=== PATIENT | male | born 1980 | race Caucasian/White ===

== ENCOUNTER 2021-01-07 11:27 | Emergency (ER) | payer SELFPAY ==
[2021-01-07 11:42] VITALS: BP 163/113; PULSE 85; RESP 14; TEMP 36.6; O2SAT 98; BMI 28.7
--- NOTE | 2021-01-07 13:40 | ECG_ITS ---
[facility] Test Date: 2021-01-07 Pat Name: NANI MIRELES Department: Room: Gender: Male Hospital Manager: : 1980 Requested By: Fam Ugarte Order Number: [id number] Reading MD: MAGALI GIVENS Measurements Intervals [place] Rate: 69 P: 38 VT: 154 QRS: -1 QRSD: 110 T: 32 QT: 338 QTc: 362 Interpretive Statements SINUS RHYTHM INCOMPLETE RIGHT BUNDLE BRANCH BLOCK [90+ ms QRS DURATION, TERMINAL R IN V1/V2, 40+ ms S IN I/aVL/V4/V5/V6] No previous ECG available for comparison Electronically Signed On 01-07-2021 19:29:18 TRACK REPAIR WORKER by MAGALI GIVENS [id number]
--- NOTE | 2021-01-07 13:40 | XRR_ITS ---
PROCEDURE INFORMATION: Exam: XR Chest, 1 View Exam date and time: 01/07/2021 2:25 PM Age: 40 years old Clinical indication: Cough and dyspnea; Additional info: Dyspnea/cough TECHNIQUE: Imaging protocol: XR of the chest Views: Frontal portable upright view of the chest. COMPARISON: No relevant prior studies available. FINDINGS: Lungs: Left upper lobe calcified pulmonary parenchymal granuloma. The lungs are otherwise clear bilaterally. The pulmonary vasculature is normal. Pleural spaces: Unremarkable. No pleural effusion. No pneumothorax. Heart/Mediastinum: The heart is normal in size and contour. Bones/joints: No acute chest wall abnormality identified. XR/XR chest 1V portable [id number] IMPRESSION: No acute cardiopulmonary abnormality identified.
--- NOTE | 2021-01-07 13:43 | W.ED.GENADLT ---
HPI - General Adult General: Chief complaint: General Medical Stated complaint: HIGH BP (CONSISTENTLY) Time Seen by Provider: 01/07/21 12:57 History of Present Illness: HPI narrative: 40-year-old male presents emergency room with complaint of elevated blood pressure. He has a history of hypertension he quit taking his blood pressure medications about a year ago. He recently moved here and has not restarted them. He states he was taking clonidine as monotherapy in the past. He denies any visual difficulties difficulty speech swallowing no chest pain shortness of breath. He has not established with a primary care doctor in this region. Onset (ago): month(s) Severity: moderate Relieving factors: none Exacerbating factors: none Associated symptoms: Deny chest pain, confusion, cough, diaphoresis, decreased appetite, dyspnea, fevers/chills, headache(s), malaise, nausea, rash, palpitations, seizures, short of breath, syncope, vomiting or weakness Review of Systems Const: Denies: malaise or diaphoresis ENMT: Denies: throat pain, ear or mastoid pain, nasal discharge or nasal congestion Card: Denies: chest pain, palpitations or syncope Resp: Denies: dyspnea GI: Denies: nausea or vomiting : Denies: flank pain, dysuria, urinary frequency or urinary urgency Skin/Breast: Denies: rash Neuro: Denies: headache(s) or confusion Physical Exam Const: COMMON NORMALS: no acute distress GENERAL APPEARANCE: cooperative and comfortable ORIENTATION/CONSCIOUSNESS: Yes awake, Yes oriented to person, Yes oriented to place and Yes oriented to time HENMT: COMMON NORMALS: normocephalic, atraumatic and hearing grossly normal bilaterally HEAD & SCALP: normocephalic and atraumatic Neck/C-Spine: COMMON NORMALS: no JVD Resp: COMMON NORMALS: normal respiratory effort, No retractions, No use of accessory muscles and clear to auscultation bilaterally AUSCULTATION: clear to auscultation bilaterally Cardio: COMMON NORMALS: no JVD, regular rate, regular rhythm and No murmurs present (Cardio) RATE: regular rate RHYTHM: regular rhythm GI: COMMON NORMALS: Soft to palpation and No hepatosplenomegaly present AUSCULTATION: Yes normoactive bowel sounds PALPATION: Yes Soft to palpation, No Tenderness to palpation present (GI), No Guarding due to palpation present (GI) and Yes No hepatosplenomegaly present Extremity: COMMON NORMALS: normal to inspection, capillary refill normal, no clubbing, cyanosis or edema, no calf tenderness and no pedal edema Neuro: SENSORIUM/ORIENTATION: Yes oriented to person, Yes oriented to place and Yes oriented to time Skin: COMMON NORMALS: no rashes or lesions noted GENERAL SKIN EXAM: no rashes or lesions noted Course Vital Signs: Vital signs: Vital Signs Temperature 97.9 F 01/07/21 11:42 Pulse Rate 66 01/07/21 14:08 Respiratory Rate 19 H 01/07/21 14:08 Blood Pressure 130/92 01/07/21 14:08 Pulse Oximetry 98 01/07/21 14:08 MDM - General Adult MDM Narrative: Medical decision making narrative: Blood pressure much improved with treatment given in the ER. Will start mental amlodipine 5 mg daily and lisinopril 5 mg daily if have case management get him established with a primary care physician in [facility]. Return if has problems. Lab Data: Labs: Lab Results 01/07/21 01/07/21 Range/Units 14:06 14:06 WBC 8.1 (4.0-10.0) 10^3/ uL RBC 6.11 H (4.1-5.3) 10^6/u L Hgb 15.6 (11.7-16.6) g/dL Hct 50.7 (42.0-52.0) % MCV 83.0 (80-94) fL MCH 25.5 L (28.0-34.0) pg MCHC 30.8 (30.0-36.0) g/dL RDW 14.7 (12.1-15.1) % Plt Count 222 (130-400) 10^3/c mm MPV 12.1 H (7.4-10.4) fL Neut % (Auto) 51.8 % Lymph % (Auto) 34.3 % [place] % (Auto) 10.1 % Eos % (Auto) 2.6 % Baso % (Auto) 0.7 % Neut # (Auto) 4.20 (1.8-7.7) 10^3/u L Lymph # (Auto) 2.8 (0.8-4.8) 10^3/u L [place] # (Auto) 0.8 (0.2-0.9) 10^3/u L Eos # (Auto) 0.2 (0.0-0.8) 10^3/u L Baso # (Auto) 0.1 (0.0-0.1) 10^3/u L Nucleated RBC % (a uto) 0 % Nucleated RBCs # 0.0 /100WBC Sodium 138 (136-145) mmol/L Potassium 4.4 (3.5-5.1) mmol/L Chloride 101 (98-107) mmol/L Carbon Dioxide 29 (22-29) mmol/L Anion Gap 12.4 (5-19) BUN 9 (6-20) mg/dL Creatinine 0.9 (0.7-1.2) mg/dL GFR Calculation 93.0 (90-130) mL/min Glucose 84 (65-115) mg/dL Calculated Osmolal ity 284 L (285-295) mOsm/k g Calcium 9.3 (8.5-10.5) mg/dL Discharge Plan Discharge Patient Disposition: Home Clinical Impression: Benign essential HTN Condition: Stable Prescriptions: New amlodipine 5 mg tablet 5 mg PO DAILY Qty: 30 RF: 0 lisinopril 5 mg tablet 5 mg PO DAILY Qty: 30 RF: 0 Discharge Orders: Discharge ED (Routine); Ordered 01/07/21 Ordered By: Fam Licea Discharge Diet: Usual diet Discharge Activity: Increase activity as tolerated Activity Restrictions/Additional Instructions: Start oral antihypertensive as prescribed above. Case management will call to make an arrangement for primary care physician Coding Level of Care Code ED Pipeline Gang Supervisor for Velma Henderson
[2021-01-07] MEDS: lisinopril 10 mg Tablet PO (13:54)
[2021-01-07] MEDS: amlodipine 5 mg Tablet PO (13:54)
[2021-01-07] MEDS: metoprolol tartrate 1 mg/1 mL SDV 5 mL 2.5 MG IV (13:55)
[2021-01-07 14:08] VITALS: BP 130/92; PULSE 66; RESP 19; O2SAT 98
[2021-01-07 14:23] LABS: Basophils # 0.1 10^3/uL (0.0-0.1); Basophils % 0.7 %; Eosinophils # 0.2 10^3/uL (0.0-0.8); Eosinophils % 2.6 %; Hematocrit 50.7 % (42.0-52.0); Hemoglobin 15.6 g/dL (11.7-16.6); Lymphocytes # 2.8 10^3/uL (0.8-4.8); Lymphocytes % 34.3 %; Mean Corpuscular HGB Conc 30.8 g/dL (30.0-36.0); Mean Corpuscular Hemoglobin 25.5 pg (28.0-34.0); Mean Platelet Volume 12.1 fL (7.4-10.4); Monocytes # 0.8 10^3/uL (0.2-0.9); Monocytes % 10.1 %; Neutrophils % 51.8 %; Nucleated Red Blood Cells % 0 %; Platelet Count 222 10^3/cmm (130-400); Red Blood Count 6.11 10^6/uL (4.1-5.3); Red Cell Distribution Width 14.7 % (12.1-15.1); White Blood Count 8.1 10^3/uL (4.0-10.0)
[2021-01-07 14:44] LABS: Anion Gap 12.4 (5-19); Blood Urea Nitrogen 9 mg/dL (6-20); Calcium 9.3 mg/dL (8.5-10.5); Carbon Dioxide 29 mmol/L (22-29); Chloride 101 mmol/L (98-107); Creatinine Clr Calc Pharmacy 141.2131; Glucose 84 mg/dL (65-115); Osmolality Calculated 284 mOsm/kg (285-295); Potassium 4.4 mmol/L (3.5-5.1); Sodium 138 mmol/L (136-145)
[2021-01-07 14:55] VITALS: BP 122/80; PULSE 90; RESP 16; O2SAT 98
--- NOTE | 2021-01-08 11:22 | DCPLANNER ---
cable installation manager was left a message to schedule primary care doctor appointment. cable installation manager called patient and gave him his options. cable installation manager spoke to patient accounts to ask if Medicare Part A would cover PCP appointments, they stated no. cable installation manager spoke with patient and gave him that information. Patient asked case planner to mail him financial applications. cable installation manager confirmed address on file was current and mailed applications.
== END 2021-01-07 14:55 | disposition home or self-care (01) ==
PROVIDERS: Emergency Provider Family Medicine
DX: I10 Essential (primary) hypertension (principal)
CPT/HCPCS: 12345; 71045; 80048; 85025; 93005; 96374; 99282; 99283; J3490

== ENCOUNTER 2021-08-22 17:29 | Outpatient (CLI) | payer SELFPAY ==
[2021-08-22 17:43] LABS: Basophils # 0.1 10^3/uL (0.0-0.1); Basophils % 1.1 %; Eosinophils # 0.3 10^3/uL (0.0-0.8); Hematocrit 46.9 % (42.0-52.0); Hemoglobin 14.3 g/dL (11.7-16.6); Lymphocytes # 2.9 10^3/uL (0.8-4.8); Lymphocytes % 38.1 %; Mean Corpuscular HGB Conc 30.5 g/dL (30.0-36.0); Mean Corpuscular Hemoglobin 24.4 pg (28.0-34.0); Mean Corpuscular Volume 79.9 fl (80-94); Mean Platelet Volume 11.2 fL (7.4-10.4); Monocytes # 0.6 10^3/uL (0.2-0.9); Monocytes % 7.9 %; Neutrophils # 3.69 10^3/uL (1.8-7.7); Neutrophils % 48.6 %; Nucleated Red Blood Cells % 0 %; Platelet Count 286 10^3/cmm (130-400); Red Blood Count 5.87 10^6/uL (4.1-5.3); Red Cell Distribution Width 15.9 % (12.1-15.1); White Blood Count 7.6 10^3/uL (4.0-10.0)
[2021-08-22 18:30] LABS: Alanine Aminotransferase 251 U/L (0-41); Albumin Level 4.3 g/dL (3.5-5.2); Alkaline Phosphatase 98 IU/L (40-130); Anion Gap 15.5 (5-19); Aspartate Amino Transferase 138 U/L (0-40); Blood Urea Nitrogen 21 mg/dL (6-20); Calcium 9.7 mg/dL (8.5-10.5); Carbon Dioxide 27 mmol/L (22-29); Chloride 102 mmol/L (98-107); Chol HDL Ratio 4.55 mg/dL (1.0-5.00); Cholesterol 150 mg/dL (0-200); Globulin 4.4 g/dL (1.3-4.6); Glomerular Filtration Rate 81.9 mL/min (90-130); Glucose 81 mg/dL (65-115); HDL Cholesterol 33 mg/dL (60-100); LDL Cholesterol Calculated 95 mg/dL (50-129); LDL HDL Ratio 2.88 RATIO (0.00-3.22); Osmolality Calculated 292 mOsm/kg (285-295); Potassium 4.5 mmol/L (3.5-5.1); Sodium 140 mmol/L (136-145); Thyroid Stimulating Hormone 1.53 uIU/mL (0.27-4.20); Total Bilirubin 0.4 mg/dL (0.15-1.2); Total Protein 8.7 g/dL (6.6-8.7); Triglycerides 110 mg/dL (0-150)
== END 2021-08-22 17:30 | disposition home or self-care (01) ==
LOC: LAB 17:30
PROVIDERS: Visit Provider General Practice
DX: I10 Essential (primary) hypertension (principal)
CPT/HCPCS: 80053; 80061; 84443; 85025

== ENCOUNTER → 2022-02-24 16:26 | Outpatient (BNVA) | payer MEDICAID, SELFPAY | PROVIDERS: Visit Provider Nurse Practitioner Family | DX: I10 Essential (primary) hypertension (principal); J32.9 Chronic sinusitis, unspecified | CPT/HCPCS: 80053; 80061; 82607; 83735; 84443; 85025 ==

== ENCOUNTER → 2022-02-27 13:38 | Outpatient (BNVA) | payer MEDICAID, SELFPAY | PROVIDERS: Visit Provider Nurse Practitioner Family | DX: B19.20 Unspecified viral hepatitis C without hepatic coma (principal) | CPT/HCPCS: 86705; 86706; 86709; 86803; 87340 ==

== ENCOUNTER → 2022-03-11 09:50 | Outpatient (BNVA) | payer MEDICARE, MEDICAID, SELFPAY | PROVIDERS: PCP Nurse Practitioner Family; Visit Provider Nurse Practitioner Family | DX: B19.20 Unspecified viral hepatitis C without hepatic coma (principal) | CPT/HCPCS: 87522; 87902 ==